=== PATIENT | male | born 1995 | race Two or more races ===

== ENCOUNTER 2019-02-07 10:18 | Emergency (ER) | payer SELFPAY ==
[~2019-02-07] VITALS: Ht 180.3 cm; Wt 80.0 kg
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
[2019-02-07 11:47] LABS: BASOPHILS # (AUTO) 0.02 x10^3/uL (0-0.1); BASOPHILS % (AUTO) 0 % (0-1); EOSINOPHILS # (AUTO) 0.01 x10^3/uL (0-0.4); EOSINOPHILS % (AUTO) 0 % (1-7); LYMPHOCYTES # (AUTO) 1.57 x10^3/uL (1-3.4); LYMPHOCYTES % (AUTO) 20 % (22-44); MD NO; MEAN CORPUSCULAR HEMOGLOBIN 30.1 pg (27.5-34.5); MEAN CORPUSCULAR HGB CONC 34.1 g/dL (33.2-36.2); MEAN CORPUSCULAR VOLUME 88.4 fL (81-97); MEAN PLATELET VOLUME 8.3 fL (7.4-10.4); MONOCYTES # (AUTO) 0.81 x10^3/uL (0.2-0.8); MONOCYTES % (AUTO) 10 % (2-9); NEUTROPHILS # (AUTO) 5.33 x10^3/uL (1.8-6.8); NEUTROPHILS % (AUTO) 69 % (42-75); PLATELET COUNT 196 x10^3/uL (130-400); RED BLOOD COUNT 5.18 x10^6/uL (4.38-5.82); RED CELL DISTRIBUTION WIDTH 13.1 % (9.4-14.8)
[2019-02-07 11:48] LABS: MICROSCOPIC NOT IND
[2019-02-07 11:56] LABS: ALBUMIN 3.8 g/dL (3.4-5.0); ANION GAP 6 mmol/L (5-15); CALCIUM 8.7 mg/dL (8.5-10.1); CHLORIDE 105 mmol/L (98-107); CREATININE 0.77 mg/dL (0.7-1.3)
[2019-02-07 11:58] LABS: CULTURE INDICATED? NO
--- NOTE | 2019-02-07 12:01 | NUR ---
PT RESTING IN ROOM WITH FAMILY AT BEDSIDE. VSS. NO NEEDS AT THIS TIME.
[2019-02-07 12:02] VITALS: BP 129/86
--- NOTE | 2019-02-07 12:52 | NUR ---
all results back at this time. vss. no needs at this time. call light wiFamilonetin reach. all results back at this time. chart up for recheck.
--- NOTE | 2019-02-07 12:57 | NUR ---
pt left after edmd update without d/c paperwork.
== END 2019-02-07 13:00 | disposition left against medical advice (07) ==
LOC: ED 11:52
DX: R10.11 Right upper quadrant pain (principal); R10.31 Right lower quadrant pain; F14.10 Cocaine abuse, uncomplicated; F17.200 Nicotine dependence, unspecified, uncomplicated
CPT/HCPCS: 36415; 74176; 80048; 81003; 82040; 85025; 99284

== ENCOUNTER 2019-10-09 16:56 | Emergency (ER) | payer SELFPAY ==
[~2019-10-09] VITALS: Ht 180.3 cm; Wt 73.0 kg
--- NOTE | 2019-10-09 17:24 | NUR ---
VA'S DONE IN TRIAGE PATIENT HAD DIFFICULTY KEEPING RIGHT EYE OPEN DUE TO IRRITATION.
--- NOTE | 2019-10-09 17:36 | NUR ---
Pt to room 20 from lobby
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
[2019-10-09] MEDS ORDERED: PROPARACAINE OPHTH 0.5%, 15ML ONE (18:08)
[2019-10-09] MEDS ORDERED: FLUORESCEIN OPHTHALMIC 1 MG STRIP ONE (18:08)
[2019-10-09 18:09] VITALS: BP 107/66
== END 2019-10-09 19:01 | disposition home or self-care (01) ==
LOC: ED 18:49
DX: S05.01XA Injury of conjunctiva and corneal abrasion without foreign body, right eye, initial encounter (principal); X58.XXXA Exposure to other specified factors, initial encounter; Y93.89 Activity, other specified; Y92.89 Other specified places as the place of occurrence of the external cause; Y99.8 Other external cause status
CPT/HCPCS: 99283